=== PATIENT | female | born 1995 | race Caucasian/White ===

== ENCOUNTER 2016-09-23 09:22 | Emergency (ER) | payer MEDICAID ==
[2016-09-23 09:46] VITALS: BP 116/74
--- NOTE | 2016-09-23 09:55 | UC ---
Skin Complaint HPI - HPI Summary HPI Summary: complaint of rash that is lower abdomen and buttocks that started 3 daysa go was wearing disposable underwear and maybe allergic reaction bumps that are itchy some look like pimples currently bresatfeeding 6 days old concerned that she will give rash to her baby tried to use a "calming" lotion without relief denies any other new soaps lotions, foods, medications denies fever and chills no difficulties with at this time - History of Current Complaint Chief Complaint: UCRash Stated Complaint: RASH Hx Obtained From: Patient Hx Last Menstrual Period: JUST HAD A BABY SIX DAYS AGO Onset/Duration: Sudden Onset, Lasting Days Aggravating: Showering - Allergy/Home Medications Allergies/Adverse Reactions: Allergies Allergy/AdvReac Type Severity Reaction Status Date / Time Sulfamethoxazole Allergy Rash Verified 03/30/16 11:43 w/Trimethoprim [From Bactrim] Review of Systems Constitutional: Negative Skin: Rash Eyes: Negative ENT: Negative Respiratory: Negative Cardiovascular: Negative Gastrointestinal: Negative Genitourinary: Negative Motor: Negative Neurovascular: Negative Musculoskeletal: Negative Neurological: Negative Psychological: Negative All Other Systems Reviewed And Are Negative: Yes PMH/Surg Hx/FS Hx/Imm Hx Previously Healthy: Yes Endocrine History Of: Denies: Diabetes, Thyroid Disease Cardiovascular History Of: Denies: Cardiac Disorders, Hypertension Respiratory History Of: Reports: Asthma - A CHILD Denies: COPD GI/ History Of: Denies: Ulcer - Surgical History Surgical History: None - Family History Known Family History: Negative: Cardiac Disease, Hypertension, Diabetes - Social History Occupation: Employed Full-time Lives: With Family Alcohol Use: None Substance Use Type: None, Other Smoking Status (MU): Former Smoker - Immunization History Most Recent Influenza Vaccination: 07/07/16 Most Recent Tetanus Shot: 08/04/16 Most Recent Pneumonia Vaccination: never Physical Exam Triage Information Reviewed: Yes Appearance: No Pain Distress, Well-Nourished Vital Signs: Initial Vital Signs Temp 97.0 F 09/23/16 09:39 Pulse 84 09/23/16 09:39 Resp 16 09/23/16 09:39 BP 116/74 09/23/16 09:39 Pulse Ox 100 09/23/16 09:39 Vital Signs Reviewed: Yes Eyes: Positive: Conjunctiva Clear ENT: Positive: Pharynx normal, Nasal congestion, TMs normal Neck: Positive: No Lymphadenopathy Respiratory: Positive: Lungs clear, Normal breath sounds, No respiratory distress Cardiovascular: Positive: RRR, No Murmur, Pulses Normal Abdomen Description: Positive: Nontender, Soft Bowel Sounds: Positive: Present Musculoskeletal: Positive: No Edema Neurological: Positive: Alert Psychological Exam: Normal Skin Exam: Other - buttocks -flat erythematous rash abdomnen- flat erythematous rsh with several small papules in a line wear waistband of underwear was touching skin Course/Dx - Course Course Of Treatment: exam competed. contact dernmatitis- will rx for hydrocortisone cream only d/t and mild symptoms and appearance of rash - Differential Diagnoses - Skin Complaint Differential Diagnoses: Allergic Reaction, Cellulitis, Contact Dermatitis, Scabies - Diagnoses Provider Diagnoses: contact dermatitis Discharge - Discharge Plan Condition: Stable Disposition: HOME Prescriptions: Hydrocortisone 1% CREAM* [Hytone Cream 1%*] 1 applic TOPICAL BID #1 tube Patient Education Materials: Contact Dermatitis (ED) Referrals: [facility] [place] [facility] [Outside] Additional Instructions: you have a rash from allergy to material from disposable underwear do not use that product again start using hydrocortisone cream as directed to reduce itching Please review your discharge instructions. If your symptoms do not improve please call your primary care provider or return to urgent care.
== END 2016-09-23 10:21 | disposition home or self-care (01) ==
LOC: UCEAST 09:22
DX: L25.9 Unspecified contact dermatitis, unspecified cause (principal); Z87.891 Personal history of nicotine dependence
CPT/HCPCS: 99212; G0463

== ENCOUNTER 2017-01-13 18:56 | Emergency (ER) | payer MEDICAID | END 2017-01-13 19:49 | disposition left against medical advice (07) | LOC: UCEAST 18:56 | DX: R21 Rash and other nonspecific skin eruption (principal); Z53.21 Procedure and treatment not carried out due to patient leaving prior to being seen by health care provider ==

== ENCOUNTER 2017-01-13 20:08 | Emergency (ER) | payer MEDICAID ==
[2017-01-13 20:30] VITALS: BP 118/73
--- NOTE | 2017-01-13 20:51 | UC ---
Skin Complaint HPI - HPI Summary HPI Summary: is using a different soap on her new tattoo on right arm. has some scattered red bumps on arm - History of Current Complaint Chief Complaint: UCSkin Time Seen by Provider: 01/13/17 20:45 Stated Complaint: BUMPS ON SKIN ON TATTOO Hx Obtained From: Patient Hx Last Menstrual Period: 01/13/17 ?: No Onset/Duration: Sudden Onset, Lasting Days, Still Present Timing: Constant Onset Severity: Mild Current Severity: Mild Location: Discrete - right uppper arm Aggravating: Nothing Alleviating: Nothing Associated Signs & Symptoms: Positive: Negative - Allergy/Home Medications Allergies/Adverse Reactions: Allergies Allergy/AdvReac Type Severity Reaction Status Date / Time Sulfamethoxazole Allergy Rash Verified 03/30/16 11:43 w/Trimethoprim [From Bactrim] Review of Systems Constitutional: Negative Skin: Rash - no evidence of infection in or around tattoo---has some scattered red itchy bumps on upper arm Eyes: Negative ENT: Negative Respiratory: Negative Cardiovascular: Negative Gastrointestinal: Negative Genitourinary: Negative Motor: Negative Neurovascular: Negative Musculoskeletal: Negative Neurological: Negative Psychological: Negative All Other Systems Reviewed And Are Negative: Yes PMH/Surg Hx/FS Hx/Imm Hx Previously Healthy: No Endocrine History Of: Denies: Diabetes, Thyroid Disease Cardiovascular History Of: Denies: Cardiac Disorders, Hypertension Respiratory History Of: Reports: Asthma - A CHILD Denies: COPD GI/ History Of: Denies: Ulcer - Surgical History Surgical History: None - Family History Known Family History: Negative: Cardiac Disease, Hypertension, Diabetes - Social History Alcohol Use: None Substance Use Type: None, Other Smoking Status (MU): Former Smoker When Did the Patient Quit Smoking/Using Tobacco: 1 year ago - Immunization History Most Recent Influenza Vaccination: 07/07/16 Most Recent Tetanus Shot: 08/04/16 Most Recent Pneumonia Vaccination: never Physical Exam Triage Information Reviewed: Yes Appearance: Well-Appearing, No Pain Distress, Well-Nourished Vital Signs: Initial Vital Signs Temp 98.6 F 01/13/17 20:27 Pulse 65 01/13/17 20:27 Resp 16 01/13/17 20:27 BP 118/73 01/13/17 20:27 Pulse Ox 99 01/13/17 20:27 Vital Signs Reviewed: Yes Eye Exam: Normal Eyes: Positive: Conjunctiva Clear ENT Exam: Normal ENT: Positive: Normal ENT inspection, Hearing grossly normal. Negative: Nasal congestion, Nasal drainage, Trismus, Muffled/hoarse voice Dental Exam: Normal Neck exam: Normal Neck: Positive: Supple, Nontender, No Lymphadenopathy Respiratory Exam: Normal Respiratory: Positive: Chest non-tender, No respiratory distress, No accessory muscle use Cardiovascular Exam: Normal Cardiovascular: Positive: RRR, Pulses Normal, Brisk Capillary Refill Musculoskeletal Exam: Normal Musculoskeletal: Positive: Strength Intact, ROM Intact, No Edema Neurological Exam: Normal Neurological: Positive: Alert, Muscle Tone Normal Psychological Exam: Normal Skin Exam: Other Skin: Positive: rashes Course/Dx - Course Course Of Treatment: stop soap you are currently using---return to a soap known not to cause you skin troubles---follow with pcp re-check prn - Differential Diagnoses - Skin Complaint Differential Diagnoses: Contact Dermatitis, Impetigo, Local Allergic Reaction - Diagnoses Provider Diagnoses: Contact dermatitis Discharge - Discharge Plan Condition: Stable Disposition: HOME Patient Education Materials: Contact Dermatitis (ED) [place]errals: [facility] [place]Outside] No Primary Care Phys,NOPCP [Primary Care Provider] - Additional Instructions: Stop using the current soap you are using on your arm---Follow in 4-5 days if not resolving or worsens at any time
== END 2017-01-13 21:00 | disposition home or self-care (01) ==
LOC: UCEAST 20:08
DX: L25.8 Unspecified contact dermatitis due to other agents (principal); Z88.2 Allergy status to sulfonamides; Z87.891 Personal history of nicotine dependence
CPT/HCPCS: 99211; G0463

== ENCOUNTER 2018-02-27 11:51 | Emergency (ER) | payer BC, MEDICAID ==
[2018-02-27 12:21] VITALS: BP 119/78
== END 2018-02-27 13:46 | disposition left against medical advice (07) ==
LOC: UCEAST 11:51
DX: R10.9 Unspecified abdominal pain (principal); R51 Headache; Z53.21 Procedure and treatment not carried out due to patient leaving prior to being seen by health care provider